=== PATIENT | female | born 1980 | race African-American/Black ===

== ENCOUNTER → 2020-10-04 | Day surgery (SDC) | payer BC ==
[~2020-10-04] MED LIST: FLU VACC QS2020-21(6MOS UP)/PF 60 MCG/0.5 ML SYRINGE IM ONE; Lidocaine 1% PF 5 ML VIAL ONE; Sodium Bicarbonate 2.5 MEQ/5 ML VIAL ONE
[2020-10-04 08:12] VITALS: BMI 37.5
[2020-10-04 08:17] VITALS: BP 121/80; TEMP 98.2
== END ==
LOC: CSHRAD 07:44
PROVIDERS: ATTEND Neurological Surgery
DX: M54.16 Radiculopathy, lumbar region (principal); M54.5 Low back pain; T84.226A Displacement of internal fixation device of vertebrae, initial encounter
CPT/HCPCS: 62304; 72132